=== PATIENT | female | born 1970 | race Native Hawaiian/Other Pacific Islander ===

== ENCOUNTER 2022-07-07 09:11 | Emergency (ER) | payer SELFPAY ==
[2022-07-07 09:27] VITALS: BP 128/86; PULSE 66; RESP 14; TEMP 36.2; O2SAT 99
--- NOTE | 2022-07-07 11:48 | DI.US.S_ITS ---
PROCEDURE: US AXILLARY ONLY LT COMPARISON: None. INDICATIONS: lymph node vs abscess vs superficial cyst? FINDINGS: No prior exams were available for comparison. Color flow ultrasound of the left axilla was performed. Marshall scale images of the real-time examination were reviewed. There is a 1.3 cm x 1.6 cm x 0.5 cm oval fluid collection in the left axillary tail. This oval fluid collection is intradermal, of mixed echogenicity with internal echoes. There is posterior enhancement. Color flow imaging demonstrates that there is increased vascularity in surrounding tissue and increased vascularity. This correlates as palpated. IMPRESSION: The 1.3 cm x 1.6 cm x 0.5 cm oval fluid collection most likely is an infected sebaceous cyst or an intradermal abscess. There is no underlying axillary mass or visible enlarged lymph node to correspond to the palpable abnormaltiy. Aspiration for symptom relief could be performed. Return to annual mammogram screening schedule is recommended. Findings and recommendations were conveyed to the patient at time of exam. This exam was interpreted at Station ID: [id number]. Dictated by: Amber Kelley M.D. on 07/07/2022 at 13:42 Approved by: Amber Kelley M.D. on 07/07/2022 at 13:48
--- NOTE | 2022-07-07 12:00 | PC.NURSE ---
law office manager used via ipad law office manager device for PERSIAN. spouse at bedside.
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
[2022-07-07 13:01] LABS: Influenza A - CEPHEID Flu A NEGATIVE (NEGATIVE); Influenza B - CEPHEID Flu B NEGATIVE (NEGATIVE); Respiratory Syncytial Virus Negative (Negative)
[2022-07-07 13:12] LABS: COVID-19 CEPHEID 4-PLEX PCR Negative (Negative)
[2022-07-07] MEDS: KETOROLAC 10 MG TABLET PO (13:12)
[2022-07-07] MEDS: ACETAMINOPHEN 325 MG TABLET 650 MG PO (13:12)
--- NOTE | 2022-07-07 13:12 | PC.NURSE ---
foreign language teacher used via ipad foreign language teacher device for PORTUGUESE. to explain medications. spouse at bedside.
[2022-07-07] MEDS: DEXAMETHASONE 10 MG/ML VIAL PO (13:13)
[2022-07-07 14:35] VITALS: BP 130/78; PULSE 58; RESP 16; TEMP 36.6; O2SAT 100
== END 2022-07-07 14:37 | disposition home or self-care (01) ==
PROVIDERS: Emergency Provider Nurse Practitioner Critical Care Medicine; PCP Internal Medicine
DX: L02.412 Cutaneous abscess of left axilla (principal); Z20.822 Contact with and (suspected) exposure to COVID-19
CPT/HCPCS: 0241U; 10060; 76882; 81003; 87070; 87205; 99283; 99284; J1100

== ENCOUNTER 2022-07-19 20:06 | Emergency (ER) | payer SELFPAY ==
--- NOTE | 2022-07-19 | DI.US.S_ITS ---
PROCEDURE: US AXILLARY ONLY LT COMPARISON: [facility], , US AXILLARY ONLY LT, 07/07/2022, 12:06. INDICATIONS: LEFT AXILLA LUMP AND LEFT AXILLA PAIN RADIATING DOWN ARM FINDINGS: No axillary adenopathy or drainable abscess is found. At the left axilla there is a small region of 3 x 5 x 5 mm hypoechoic tissue with reactive vascularity, with tract to the skin surface. This reportedly was drained by an ER physician 07/07/22. IMPRESSION: No adenopathy or abscess identified. Resolving inflammatory process left axilla previously measuring approximately 1.3 x 1.6 x 0.5 cm and now 5 x 5 x 3 mm. Dictated by: Marcell White M.D. on 07/20/2022 at 0:04 Approved by: Marcell White M.D. on 07/20/2022 at 0:06
[2022-07-19 20:22] VITALS: BP 135/76; PULSE 68; RESP 18; TEMP 36.4; O2SAT 100; BMI 22.7
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
--- NOTE | 2022-07-19 20:55 | PC.NURSE ---
Pt reports worsening pain under Left auxiliary and down left arm, as well as across to top left of breast. Lumps palpated in all areas.
--- NOTE | 2022-07-19 22:13 | DI.US.S_ITS ---
PROCEDURE: US PERIPH VENOUS UP EXTREM LT INDICATIONS: PAIN TECHNIQUE: Real-time imaging, as well as color and pulse Doppler interrogation, was performed of the left upper extremity deep veins from the inferior neck to the antecubital fossa. COMPARISON: None. FINDINGS: The internal jugular vein, visualized portions of the subclavian vein, axillary, and brachial veins are free of intraluminal thrombus. Where physically possible, the veins are normally compressible. Color and pulse Doppler demonstrate normal intraluminal flow, with expected phasicity and pulsatility. Additional scanning of the cephalic and basilic veins of the superficial system demonstrate normal compressibility, without thrombus. IMPRESSION: No DVT found left upper extremity deep venous system. Dictated by: Marcell White M.D. on 07/20/2022 at 0:02 Approved by: Marcell White M.D. on 07/20/2022 at 0:03
[2022-07-19] MEDS: KETOROLAC 30 MG/ML VIAL IM (22:23)
[2022-07-19 22:27] VITALS: BP 134/85; PULSE 60; O2SAT 98
[2022-07-19 22:30] VITALS: O2SAT 98
[2022-07-19 23:00] VITALS: PULSE 63; O2SAT 99
[2022-07-19 23:30] VITALS: PULSE 65; O2SAT 98
--- NOTE | 2022-07-19 23:48 | PC.NURSE ---
Addendum entered by Ariella Petersen R.N. 07/19/22 23:59: Second attempt of language line. Georgian word processing supervisor found and used with patient. Pt has no further questions at this time. Original Note: Attempted language line service for Georgian word processing supervisor. Language Line service said no Georgian word processing supervisor available.
[2022-07-20] MEDS: DOXYCYCLINE HYCLATE 100 MG TABLET PO (00:31)
[2022-07-20 00:36] VITALS: BP 130/72; PULSE 60; O2SAT 98
--- NOTE | 2022-07-21 18:45 | PC.NURSE ---
Pt's partner called stating that pt was not tolerating doxycycline. c/o nausea/vomiting x 1 hour after taking. Requesting change in antibiotics. Pt overall feels very well. Discussed w/ Dr. Pearce who does not feel comfortable managing pt and encouraged pt to f/u w/ pcp or return to ED for further Exam. Left message on phone (confirmed number w/ initial phone call) to such. Encouraged her to f/u w/ pcp or return to ED.
== END 2022-07-20 00:39 | disposition home or self-care (01) ==
PROVIDERS: Emergency Provider Emergency Medicine; PCP Internal Medicine
DX: L73.2 Hidradenitis suppurativa (principal)
CPT/HCPCS: 76882; 93971; 96372; 99283; 99284; J1885